=== PATIENT | female | born 2000 | race Caucasian/White ===

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

== ENCOUNTER 2024-11-22 05:08 | Emergency (ER) | payer OTHER ==
[~2024-11-22] VITALS: Ht 157.5 cm; Wt 63.6 kg
[~2024-11-22 05:08] MED LIST changes: +DOCU-385 PO; +FERR325T27 PO; +IBUP-1493 PO
[2024-11-22 08:38] VITALS: BP 103/70; PULSE 78; RESP 18; TEMP 98.3; O2SAT 98
[2024-11-22] MEDS ORDERED: AMOX500C2 PO (09:18)
[2024-11-22] MEDS: NEOMYCIN/POLYMYXIN B/HYDROCORT 10 ML OTIC SUSPENSION AD ONE (09:26)
[2024-11-22] MEDS: AMOXICILLIN TRIHYDRATE 250 MG CAPSULE PO ONE (09:26)
[2024-11-22] MEDS: OXYMETAZOLINE HCL 0.05% 15 ML NASAL SPRAY NASAL ONE (09:27)
== END 2024-11-22 09:40 | disposition home or self-care (01) ==
LOC: EMS 05:09
DX: H60.91 Unspecified otitis externa, right ear (principal); H66.93 Otitis media, unspecified, bilateral; Z79.1 Long term (current) use of non-steroidal anti-inflammatories (NSAID)
CPT/HCPCS: 99284; Z7502; Z7610